=== PATIENT | female | born 1985 | race Caucasian/White ===

== ENCOUNTER 2018-12-10 20:19 | Day surgery (SDC) | payer BC ==
--- NOTE | 2018-12-10 21:02 | PDOC.EVN ---
Event Note - Event Note Event Note: OBGYN Attending case reviewed with Tea Fontenot Here for possible CTX at 38 weeks 5 days CX 3cm, unchanged from office check 2 hr OBS patient has been seen by me
--- NOTE | 2018-12-10 21:03 | PDOC.FPRHP ---
- History of Present Illness Chief Complaint: Contractions History of Present Illness: 33 yo @ 38.5 wks presents for contractions. BRENT 12/19. Reports contractions began at 1pm today and have increased in frequency and intensity since then. Ctx q4 min prior to presentation. Saw Dr. Vo in clinic with reported cervical dilation of 3cm. Denies LOF, vaginal bleeding. Endorses movement. Thinks she lost mucus plug today. - History PMHx: PSHx: FHx: Social: - Vital signs BP: [] HR: [] RR: [] Tmax: [] Pox: []% on [] Wt: [] FMR H&P: Upper Level - Plan Date/Time: 12/10/182100 I, [], have evaluated this patient and agree with findings/plan as outlined by international recruiter resident. Pertinent changes/additions are listed here.
--- NOTE | 2018-12-10 21:06 | PDOC.LDHP ---
Labor and Delivery H&P Chief complaint: contractions HPI: 33 yo @ 38.5 wks presents for contractions. BRENT 12/19. Reports contractions began at 1pm today and have increased in frequency and intensity since then. Ctx q4 min prior to presentation. Saw Dr. Vo in clinic with reported cervical dilation of 3cm. Denies LOF, vaginal bleeding. Endorses movement. Thinks she lost mucus plug today. All other ROS negative. Due date: 12/19/18 Grav: 3 Para: 2 OB History Details: Denies any complications Current complications: none Past Medical History: seasonal allergies Current medications: pre-jeff vitamins, other (zyrtec) Previous surgical history: other (tib/fib fracture repair, wisdom teeth, lymph node removal) Social history: none - Physical Exam Vital signs reviewed and normal: yes General: NAD, resting Heart: RRR Lungs: nonlabored breathing Abdomen: NTTP Extremeties: trace edema FHT: category 1 (125/mod/+accel/no decel) [place] contractions every: 2-6 min - Vaginal Exam cm dilated: 3 Effacement: 50% Station: -3 - Plan Plan: observation in L&D -: Contractions - Cervical exam 50/-3 per nurse - Cat I strip - Ctx q2-6 min Seasonal allergies - takes [facility] Plan to monitor on L&D and recheck cervical exam in 2 hours for cervical change.
[2018-12-10 21:30] VITALS: BMI 35.2
[2018-12-10 21:31] VITALS: BP 104/72; TEMP 98.8
[2018-12-10] MEDS ORDERED: Butorphanol Tartrate 1 MG/ML VIAL IM PRN (23:06)
--- NOTE | 2018-12-10 23:07 | PDOC.EVN ---
Event Note - Event Note Event Note: Per nurse check, cervix unchanged after 2 hour check, 3cm dilated. Contractions q2 min and painful. Patient interested in pain medication. Discussed options of returning home considering no cervical change in latent labor and would likely take hours vs remaining for observation and rechecking cervix in 2 hours vs at 0600. notes they live 30 minutes away and would prefer to remain. Will give 2mg stadol. Plan for cervical check in 2 hours.
[2018-12-10] MEDS ORDERED: hydrALAZINE 20 MG/ML VIAL SLOW IVP PRN (23:08)
--- NOTE | 2018-12-10 23:10 | PDOC.EVN ---
Event Note - Event Note Event Note: At bedside: patient still 3cm but with continued regular CTX every 2-4 min. We will obs another 2 hours, offer pain meds. I offered overnight observation until 0600 if desired. They desire recheck in 2 hrs and if same than DC to home
--- NOTE | 2018-12-11 01:25 | PDOC.EVN ---
Event Note - Event Note Event Note: Recent check still 3cm..they would like to stay and recheck again at 0600 due to living a distance away. We will OBS until 0600 Strip reviewed
--- NOTE | 2018-12-11 06:21 | PDOC.EVN ---
Event Note - Event Note Event Note: Unchanged cervical check. Patient discharged home and return precautions given. Attending note: FHTs reviewed. Agree, atill in latent phase with no change. Vitals wnl
== END 2018-12-11 06:18 | disposition home or self-care (01) ==
LOC: L&D/OP 20:19
PROVIDERS: ATTEND Student in an Organized Health Care Education/Training Program
DX: O47.1 False labor at or after 37 completed weeks of gestation (principal); O99.513 Diseases of the respiratory system complicating pregnancy, third trimester; J30.2 Other seasonal allergic rhinitis; Z3A.38 38 weeks gestation of pregnancy; Z79.899 Other long term (current) drug therapy; Z88.5 Allergy status to narcotic agent
CPT/HCPCS: J0595

== ENCOUNTER 2018-12-12 10:34 | Inpatient (IN) | payer BC ==
[~2018-12-12 10:34] MED LIST: Bupivacaine/Epinephrine 0.25% 30 ML VIAL ONE
[2018-12-12 11:04] VITALS: BMI 34.0
[2018-12-12] MEDS ORDERED: hydrALAZINE 20 MG/ML VIAL SLOW IVP PRN (11:25)
--- NOTE | 2018-12-12 11:25 | PDOC.FPROB ---
FMR OB H&P: HPI - History of Present Illness Chief Complaint: Contractions History of Present Illness: 33 yo @ 39.0 wks presents for contractions. She was seen in triage 2 days ago and discharged after no cervical change. Reports ctx decreased yesterday but then today have restarted with increasing intensity. Denies vaginal bleeding, discharge, LOF. Reports movement. She emphasizes that she is sure she lost her mucus plug. Primary Care Physician: Gilda FMR OB H&P: Current - Care : 3 Para: 2 Gestational age: 39.0 Due date: 12/19/18 - OB Labs GBS: negative FMR OB H&P: History - Past Medical History PMH: Seasonal allergies - OB History OB History: Denies any complications 2 prior - Surgical History Sx History: Tib/fib fracture repair, wisdom teeth removal, lymph node removal - Social History Social History: No tobacco, alcohol, or drug use FMR OB H&P: Medications - Current Home Medications: Medication Instructions Recorded Confirmed Type Cetirizine HCl [Zyrtec] 10 mg PO DAILY 12/10/18 12/12/18 History Vit37/Iron/Folic Acid 1 tablet PO DAILY 12/10/18 12/12/18 History [P[place]ata Chewable Tablet] Allergies/Adverse Reactions: Allergies Allergy/AdvReac Type Severity Reaction Status Date / Time codeine Allergy Nausea Verified 12/12/18 11:06 FMR OB H&P: ROS - Review of Systems General: denies: fever/chills, weight/appetite/sleep changes Eyes: denies: vision changes, scotomas ENT: denies: nasal congestion, rhinorrhea Cardiovascular: denies: chest pain, edema Respiratory: denies: shortness of breath, exercise intolerance Gastrointestinal: denies: abdominal pain, vomiting Genitourinary (Female): denies: dysuria, vaginal discharge, vaginal bleeding Musculoskeletal: reports: pain. denies: tenderness Neurologic: denies: weakness, headache Integumentary: denies: itching, rash FMR OB H&P: Vital Signs - Heart Tones Baseline: 150 Variability: moderate Acceleration: present Deceleration: absent [place] contractions every: 2 min FMR OB H&P: Physical Exam - Physical Exam General: awake, alert and oriented HEENT: normocephalic and atraumatic Heart: RRR, normal S1/S2, no edema General: CTAB, no respiratory distress Abdomen: soft, gravid, non-tender Skin: good tugor, capillary refill <2 seconds Lymphatic: no unusual bruising or bleeding Psychiatric: intact recent and remote memory - Pelvic Exam Vulva: normal hair distribution SVE: /-2 FMR OB H&P: A/P - Problem List (1) Supervision of normal Current Visit: Yes Status: Acute Code(s): Z34.90 - ENCNTR FOR SUPRVSN OF NORMAL , UNSP, UNSP TRIMESTER Discussion: Date/Time: 12/12/18 1125 Contractions in term sIUP - cervical exam unchanged compared to 2 days ago - Cat I, ctx q2min Will continue to monitor and recheck cervix in 2 hours. This H&P was discussed with Dr. Oconnell who agree with the above documentation and plan. Addendum - Attending - Attending Attestation Date/Time: 12/13/18 0019 I personally evaluated the patient and discussed the management with Dr. Byrne I agree with the History, Examination, Assessment and Plan documented above with any addition or exceptions noted below. Pt has been unchanged. However pt was here thursday for contractions and has continued since then. She is scheduled for iol in two days. I have spoken with her primary OB, Dr Vo, who plans to augment her contractions tomorrow morning if she doesnt go into active labor by then. FEtus with reactive nst. Vital signs reviewed and wnl. Pt will be admitted for pain control and expectant management.
[2018-12-12] MEDS ORDERED: FLU VACC QS2019-20(6MOS UP)/PF 60 MCG/0.5 ML SYRINGE IM ONE (11:30)
[2018-12-12] MEDS ORDERED: Ondansetron PF 4 MG/2 ML Vial IVP PRN (13:06)
[2018-12-12] MEDS ORDERED: Acetaminophen 500 MG TAB PO PRN (13:06)
[2018-12-12] MEDS ORDERED: Promethazine HCl 25 MG/ML VIAL IM PRN (13:06)
[2018-12-12] MEDS ORDERED: Butorphanol Tartrate 1 MG/ML VIAL IM PRN (13:50)
[2018-12-12] MEDS ORDERED: Butorphanol Tartrate 1 MG/ML VIAL SLOW IVP PRN (13:50)
[2018-12-12 14:40] LABS: Mean Corpuscular HGB CONC 33.4 g/dL (32.0-36.0); Mean Corpuscular Hemoglobin 29.4 pg (27.0-31.0); Mean Corpuscular Volume 88.2 fL (78.0-98.0); Mean Platelet Volume 8.9 fL (7.4-10.4); Platelet Count 181 thou/uL (130-400); RBC Distribution Width 14.9 % (11.5-14.5); Red Blood Cell (RBC) Count 4.09 mill/uL (4.20-5.40); White Blood Cell (WBC) Count 8.5 thou/uL (4.8-10.8)
[2018-12-12 15:19] LABS: Syphilis Antibody Nonreactive (Nonreactive); Syphilis Antibody Index 0.08 S/CO (<1.00 Non-Reactive)
[2018-12-12 15:22] LABS: HBSAg Index 0.17 S/CO (0-0.99); Hep B Surf Ag Non-Reactive S/CO (NonReactive)
[2018-12-13] MEDS ORDERED: NS w/ Oxytocin 10 units 500 ML ONE (07:44)
--- NOTE | 2018-12-13 10:34 | PDOC.LDPN ---
Labor & Delivery Progress Note - Subjective Subjective: comfortable - Objective Vital signs reviewed and normal: yes General: NAD Uterine fundus: non tender Dilation: 3 Effacement: 50% Station: -2 FHT: category 1 [place] contractions every: irritability AROM: clear fluid Plan: labor augmentation
[2018-12-13] MEDS ORDERED: Fentanyl 4 mcg/Bup 0.1% Cadd 100 ML ONE (12:14)
[2018-12-13] MEDS ORDERED: Lactated Ringer's 500 ML IV PRN ×2 (12:52→12:53)
[2018-12-13] MEDS ORDERED: diphenhydrAMINE 50 MG/ML VIAL IVP PRN ×2 (12:52→12:53)
[2018-12-13] MEDS ORDERED: Ondansetron PF 4 MG/2 ML Vial IVP PRN ×3 (12:52→15:48)
[2018-12-13] MEDS ORDERED: ePHEDrine/0.9% NaCl/PF SYRINGE 50 mg/10 ml SLOW IVP PRN ×2 (12:52→12:53)
[2018-12-13] MEDS ORDERED: Naloxone HCl 0.4 mg/ml Vial IVP PRN ×4 (12:52→12:53)
[2018-12-13] MEDS ORDERED: Promethazine HCl 25 MG/ML VIAL IM PRN ×2 (12:52→12:53)
[2018-12-13] MEDS ORDERED: Acetaminophen 325 MG TAB PO PRN ×2 (12:52→12:53)
[2018-12-13] MEDS ORDERED: Communication Order-Pharmacy FS SCH ×2 (13:00)
[2018-12-13] MEDS ORDERED: Fentanyl 4 mcg/Bupivacaine 0.1% Cassette 100 ML EPIDURAL SCH (13:00)
[2018-12-13] MEDS ORDERED: NS / Oxytocin 40 units/1000ml 1,000 ML ONE ×2 (13:19→15:29)
[2018-12-13 14:20] LABS: Analyzer IN Cardio OR
[2018-12-13 14:21] LABS: Analyzer IN Cardio OR; pH (Cord, venous) 7.41 (7.32-7.43)
--- NOTE | 2018-12-13 14:59 | PDOC.OPDEL ---
OB Operative/Delivery Note Delivery Dr/Surgeon: Gilda Assist: n/a Pre-Delivery Diagnosis: active labor Weeks gestation: 39 Anesthesia: epidural - Findings A Sex: male - 1 min: 3 - 5 min: 8 - Additional Findings/Plan Placenta delivered: spontaneous Repaired Obstetrical Laceration: episiotomy (repaired with 2-0 vicryl) Estimated blood loss: 50cc Compilations/Other Findings: Medial episiotomy cut due to bradycardia and tight hymenal band, head delivered with ritgen's maneuvar, NC x 1 tight, reduced at perineum, anterior shoulder (right) did not deliver with gentle traction, suprapubic and Elena given which relieved dystocia, total time on perineum < 1 min. Raphael present at 2 min of life.
[2018-12-13] MEDS ORDERED: diphenhydrAMINE 25 MG CAP PO PRN (15:48)
[2018-12-13] MEDS ORDERED: Milk Of Magnesia 30 ML UDCUP PO PRN (15:48)
[2018-12-13] MEDS ORDERED: hydrALAZINE 20 MG/ML VIAL SLOW IVP PRN (15:48)
[2018-12-13] MEDS ORDERED: NS / Oxytocin 40 units/1000ml 1,000 ML IV SCH (15:48)
[2018-12-13] MEDS ORDERED: HYDROcodone/Acetaminophen 5/325 mg Tablet PO PRN ×2 (15:48)
[2018-12-13] MEDS ORDERED: Bisacodyl 10 MG SUPP PR PRN (15:48)
[2018-12-13] MEDS ORDERED: Preparation H Ointment 28 GM TUBE PR PRN (15:48)
[2018-12-13] MEDS ORDERED: Lanolin Ointment 7 GM TUBE TOP PRN (15:48)
[2018-12-13] MEDS ORDERED: Benzocaine-Menthol 82.5 ML CAN TOP PRN (15:48)
[2018-12-13] MEDS ORDERED: Zolpidem Tartrate 5 MG TAB PO PRN (15:48)
[2018-12-13] MEDS: Ibuprofen 800 MG TAB PO SCH (18:12)
[2018-12-13] MEDS: Ferrous Sulfate 325 MG TAB PO SCH (18:32)
[2018-12-13] MEDS: Docusate Calcium (SURFAK) 240 MG CAP PO SCH (21:45)
[2018-12-14] MEDS: Ibuprofen 800 MG TAB PO SCH ×2 (02:01→14:54)
[2018-12-14] MEDS ORDERED: Acetaminophen 500 MG TAB PO PRN (06:39)
[2018-12-14 08:31] VITALS: BP 98/64; TEMP 98
[2018-12-14] MEDS: Ferrous Sulfate 325 MG TAB PO SCH (08:46)
[2018-12-14] MEDS ORDERED: Prenatal Vitamin 1 TAB PO SCH (09:00)
[2018-12-14] MEDS ORDERED: Adacel (T-DAP) 0.5 ML SYRINGE IM ONE (09:00)
[2018-12-14] MEDS: Docusate Calcium (SURFAK) 240 MG CAP PO SCH (09:11)
--- NOTE | 2018-12-14 14:56 | PDOC.PP ---
Post Progress Note Post Day #: 1 PO intake tolerated: yes Flatus: yes Ambulation: yes Vital Signs (12 hours) Temp Pulse Resp BP Pulse Ox 12/14/18 07:04 98.0 F 71 12 98/64 99 12/14/18 03:50 97.9 F 73 18 116/66 Weight Weight 198 lb - Physical Examination General: NAD Respiratory: non-labored breathing Abdominal: no distention, appropriately TTP Fundus firm & at: umb Extremities: negative homans (B) Skin: no rash Neurological: no gross focal deficits Psychiatric: normal affect Result Diagrams: 12/12/18 14:30 Additional Labs: Post Labs Blood Type O POSITIVE 12/12/18 14:54 Hep Bs Antigen Non-Reactive S/CO (NonReactive) 12/12/18 14:30 - Assessment/Plan PPD1 s/p TSVD VSSAF Doing well pain controlled lochia = menses Bottlefeeding Rh pos RImm DC home FU 6 w
== END 2018-12-14 16:53 | disposition home or self-care (01) | DRG 807 ==
LOC: L&D/OP 10:34 → L&D 14:51 → 3SW 12-13 16:15
PROVIDERS: ADMIT Student in an Organized Health Care Education/Training Program; ATTEND Student in an Organized Health Care Education/Training Program
PROC: 10E0XZZ Delivery of Products of Conception, External Approach (ICD-10-PCS; principal; 2018-12-13)
PROC: 0W8NXZZ Division of Female Perineum, External Approach (ICD-10-PCS; 2018-12-13)
PROC: 10907ZC Drainage of Amniotic Fluid, Therapeutic from Products of Conception, Via Natural or Artificial Opening (ICD-10-PCS; 2018-12-13)
DX: O36.8330 Maternal care for abnormalities of the fetal heart rate or rhythm, third trimester, not applicable or unspecified (principal); Z37.0 Single live birth; Z3A.39 39 weeks gestation of pregnancy; N89.6 Tight hymenal ring; O99.89 Other specified diseases and conditions complicating pregnancy, childbirth and the puerperium; O69.1XX0 Labor and delivery complicated by cord around neck, with compression, not applicable or unspecified; O66.0 Obstructed labor due to shoulder dystocia
CPT/HCPCS: 36415; 82805; 85027; 86780; 86850; 86900; 86901; 87340; 90471; 90686; G0008; J0595; J2590

== ENCOUNTER 2020-01-03 09:17 | Outpatient (CLI) | payer BC ==
--- NOTE | 2020-01-03 14:48 | RAD ---
EXAM: 2 views of the left tibia/fibula HISTORY: Abnormality on bone scan in the mid tibia COMPARISON: Bone scan 01/03/2020 FINDINGS: There is no evidence of acute fracture or dislocation. An intramedullary suzette is seen in the tibia spanning a fracture. No obvious suspicious osseous lesion is seen in the midportion of the tibia or along the distal aspect of the tibia. A healed distal fibular fracture is also seen. No soft tissue swelling is seen. No degenerative changes are seen in the knee or ankle. IMPRESSION: No suspicious osseous lesions identified.
--- NOTE | 2020-01-03 14:51 | RAD ---
EXAM: 3 views of the left ankle HISTORY: Abnormality on bone scan COMPARISON: Bone scan 01/03/2020 FINDINGS: 3 views of the left ankle shows no evidence of acute fracture or dislocation. The distal as pect of an intramedullary suzette is seen. This spans a fracture of the distal tibia. No suspicious osseous lesions are identified. Mild diffuse soft tissue swelling is seen. No degenerative changes ar e present. IMPRESSION: No suspicious osseous lesions identified
--- NOTE | 2020-01-03 15:20 | NM ---
Radionucleotide three-phase bone scan HISTORY: Painful orthopedic hardware. Internal fixation left tibia with distal screw removal. FINDINGS: Blood flow and pool images over the lower legs was performed. Flow images show no asymmetry of uptake. On the blood pool images, there are areas of increased radiotracer activity at the left mid tibia and at each distal tibia. These are reproduced on the delayed images. The delayed images al so show degenerative type uptake at the shoulders and elbows. The correlating radiographs show a healing fracture at the left mid tibia without david-hardware lucen cy or erosion. Healing distal tibial fracture also evident with transverse lucencies through the distal tibia where metallic pins have been removed. No david-hardware lucency. IMPRESSION : Uptake at the left tibia favored to be related to healing fractures and orthopedic manipulation. Over all pattern and appearance are NOT suggestive of loosening or an aggressive process.
== END 2020-01-03 09:18 | disposition home or self-care (01) ==
LOC: NM 09:17
PROVIDERS: ATTEND Orthopaedic Surgery
DX: T84.84XA Pain due to internal orthopedic prosthetic devices, implants and grafts, initial encounter (principal)
CPT/HCPCS: 78315; A9503